=== PATIENT | female | born 2000 | race Hispanic/Latino ===

== ENCOUNTER 2023-05-20 21:19 | Emergency (ER) | payer OTHER ==
[~2023-05-20] VITALS: Ht 162.6 cm; Wt 72.6 kg
[2023-05-20] MEDS ORDERED: MEDROL4 M2 PO (21:30)
[2023-05-20 21:43] VITALS: O2SAT 99
== END 2023-05-20 22:03 | disposition home or self-care (01) ==
LOC: ER 21:22
DX: L25.9 Unspecified contact dermatitis, unspecified cause (principal)
CPT/HCPCS: 99282